=== PATIENT | male | born 1995 | race Caucasian/White ===

== ENCOUNTER 2016-08-02 10:39 | Outpatient (CLI) ==
[2014-05-24 18:24] VITALS: BMI 29.3
[2016-08-02 10:52] LABS: BASOPHILS % (AUTO) 0.7 % (0.0-3.0); EOSINOPHILS # (AUTO) 0.1 K/ul (0.0-0.7); EOSINOPHILS % (AUTO) 2.1 % (0.0-7.0); HEMATOCRIT 38.9 % (42.0-52.0); HEMOGLOBIN 12.5 g/dl (14.0-18.0); IMMATURE GRANULOCYTE % (AUTO) 1.1 % (0.0-5.0); LYMPHOCYTES # (AUTO) 2.8 K/uL (0.60-3.4); LYMPHOCYTES % (AUTO) 45.2 (10.0-50.0); MEAN CORPUSCULAR HEMOGLOBIN 24.3 pg (27.0-31.0); MEAN CORPUSCULAR HGB CONC 32.1 (31.8-35.4); MEAN CORPUSCULAR VOLUME 75.7 fl (80.0-94.0); MONOCYTES # (AUTO) 0.5 K/uL (0.4-2.0); MONOCYTES % (AUTO) 7.8 (0-10); NEUTROPHILS # (AUTO) 2.7 K/ul (2.0-6.9); NEUTROPHILS % (AUTO) 43.1; PLATELET COUNT 232 10^3/uL (140-440); RED BLOOD COUNT 5.14 10^6/ul (4.70-6.10); WHITE BLOOD COUNT 6.15 K/ul (4.2-10.2)
[2016-08-02 11:26] LABS: ALBUMIN/GLOBULIN RATIO 1.14; ANION GAP 12.8; BILIRUBIN,TOTAL 0.56 mg/dL (0.00-1.20); BUN/CREATININE RATIO 8.13; CALCIUM 9.4 mg/dL (8.2-10.2); CHOL/HDL RATIO 5.3 (4.5-6.4); CREATININE 1.23 mg/dL (0.60-1.10); POTASSIUM 3.8 mmol/L (3.5-5.1); TOTAL PROTEIN 7.5 g/dL (6.4-8.2)
== END 2016-08-02 10:40 | disposition home or self-care (01) ==
LOC: RAD 10:39 → LAB 10:40
PROVIDERS: ATTEND Nurse Practitioner Family
DX: R73.9 Hyperglycemia, unspecified (principal); I10 Essential (primary) hypertension; R94.5 Abnormal results of liver function studies; M54.5 Low back pain
CPT/HCPCS: 36415; 80053; 80061; 83036; 85025

== ENCOUNTER 2016-10-12 07:07 | Outpatient (CLI) ==
[2016-10-12 08:14] VITALS: BMI 31.4
== END 2016-10-12 07:08 | disposition home or self-care (01) ==
LOC: DIETCN 07:07
PROVIDERS: ATTEND Nurse Practitioner Family
DX: E11.9 Type 2 diabetes mellitus without complications (principal); K76.0 Fatty (change of) liver, not elsewhere classified
CPT/HCPCS: 97802

== ENCOUNTER 2016-11-09 10:31 | Outpatient (CLI) ==
[2016-11-09 11:07] LABS: BASOPHILS % (AUTO) 0.6 % (0.0-3.0); EOSINOPHILS # (AUTO) 0.1 K/ul (0.0-0.7); EOSINOPHILS % (AUTO) 1.5 % (0.0-7.0); HEMATOCRIT 40.5 % (42.0-52.0); HEMOGLOBIN 13.2 g/dl (14.0-18.0); IMMATURE GRANULOCYTE % (AUTO) 0.9 % (0.0-5.0); LYMPHOCYTES # (AUTO) 2.4 K/uL (0.60-3.4); MEAN CORPUSCULAR HGB CONC 32.6 (31.8-35.4); MEAN CORPUSCULAR VOLUME 76.7 fl (80.0-94.0); MONOCYTES # (AUTO) 0.4 K/uL (0.4-2.0); MONOCYTES % (AUTO) 7.2 (0-10); NEUTROPHILS # (AUTO) 2.3 K/ul (2.0-6.9); NEUTROPHILS % (AUTO) 43.8; PLATELET COUNT 238 10^3/uL (140-440); RED BLOOD COUNT 5.28 10^6/ul (4.70-6.10); WHITE BLOOD COUNT 5.28 K/ul (4.2-10.2)
[2016-11-09 11:17] LABS: ALBUMIN/GLOBULIN RATIO 1.08; ANION GAP 15.5; BILIRUBIN,TOTAL 0.42 mg/dL (0.00-1.20); BUN/CREATININE RATIO 10.4; CALCIUM 9.7 mg/dL (8.2-10.2); CREATININE 1.25 mg/dL (0.60-1.10); POTASSIUM 4.5 mmol/L (3.5-5.1); TOTAL PROTEIN 7.7 g/dL (6.4-8.2)
[2016-11-09 11:25] LABS: BILIRUBIN,URINE Negative (NEGATIVE); KETONES,URINE Negative (NEGATIVE); LEUKOCYTE ESTERASE ,URINE Negative (NEGATIVE); NITRITE,URINE Negative (NEGATIVE); PROTEIN,URINE Negative (NEGATIVE); URINE, BLOOD Negative (NEGATIVE)
[2016-11-09 11:30] LABS: ADD URINE MICROSCOPIC NO
--- NOTE | 2016-11-09 12:20 | DI ---
EXAM: KUB. History: Abdominal pain. Comparison: CT abdomen pelvis 05/24/2014 Findings: Nonspecific but nonobstructive bowel gas pattern. No free intraperitoneal air. No suspic ious calcifications are seen projecting over the renal shadows. No acute osseous abnormalities. Mil d to moderate scattered colonic stool. Impression: No acute radiographic findings within the abdomen.
== END 2016-11-09 10:32 | disposition home or self-care (01) ==
LOC: RAD 10:31
PROVIDERS: ATTEND Nurse Practitioner Family
DX: R10.817 Generalized abdominal tenderness (principal); R10.9 Unspecified abdominal pain; E11.9 Type 2 diabetes mellitus without complications
CPT/HCPCS: 36415; 80053; 81001; 83036; 85025

== ENCOUNTER 2017-02-26 11:45 | Outpatient (CLI) ==
--- NOTE | 2017-02-26 14:26 | MRI ---
EXAM: Brain MRI with and without contrast. HISTORY: Chronic headache. COMPARISON: Head CT 01/27/[address] 05/03/2007. TECHNIQUE: Multiplanar, multisequence MR images were acquired of the brain with and without contrast . FINDINGS: The midline structures are central and the craniocervical junction is unremarkable. The v entricles are normal in size. There is mild prominence of the subarachnoid space around both cerebel lar hemisphere and mild prominence of some sulci. The ventricles are normal in size. These findings are compatible with normal variation. There are no abnormal extra-axial fluid collections. The brain parenchyma has no restricted diffusion to suggest acute hypoperfusion or infarction. There are no abnormal T2 hyperintensities or foci of dark gradient echo signal to suggest intracranial hem orrhage. The corpus callosum has a normal configuration. The pituitary gland is normal in size with a mildly convex superior border that is considered normal for the patient's age. The gland measures 7.3 mm in height which is normal. After administration of contrast, no enhancing masses are identif ied. There are no intraorbital masses. Minor focal mucosal thickening is present in the left maxillary si nus. The frontal sinus is hypoplastic. There is focal mucosal thickening in the right sphenoid sinu s. Middle ears and mastoids are clear. There is mild adenoidal hypertrophy with a few nasopharyngea l submucosal cysts. There is no abnormal contrast enhancement in the internal auditory canals or lab yrinthine structures. Flow voids are present in the major intracranial arteries and dural venous sinuses. IMPRESSION: No intracranial mass, hemorrhage or acute cerebral infarct. Negative brain MRI.
== END 2017-02-26 11:46 | disposition home or self-care (01) ==
LOC: RAD 11:45
PROVIDERS: ATTEND Family Medicine
DX: R51 Headache (principal); G89.29 Other chronic pain; K76.0 Fatty (change of) liver, not elsewhere classified; E66.9 Obesity, unspecified; R79.89 Other specified abnormal findings of blood chemistry; R10.11 Right upper quadrant pain; K58.9 Irritable bowel syndrome, unspecified
CPT/HCPCS: 36415; 80053; 80061; 84436; 84443; 85025

== ENCOUNTER 2017-03-14 10:22 | Outpatient (CLI) ==
--- NOTE | 2017-03-15 18:33 | MRI ---
EXAM: Thoracic spine MRI with and without contrast. HISTORY: Back pain. COMPARISON: Chest radiograph 02/15/2007. TECHNIQUE: Multiplanar, multisequence MR images were acquired of the thoracic spine without contrast . FINDINGS: 12 rib-bearing thoracic vertebra are present. Conus medullaris ends at T12-L1. The thora cic vertebra are normal in height and intrinsic bone marrow signal. There is minor cervicothoracic l evoscoliosis centered at T2-3 and there is minor chronic left lateral wedging of T2 and T3 and right lateral wedging of T4 that is considered developmental. No acute compression fractures are present. There is endplate irregularity in the thoracic spine and there are small chronic Schmorl's nodes at T5 and from T7 to L2. Canal diameter is developmentally normal. However, there is dorsal epidural l ipomatosis from T3 through T9. In this patient with a developmentally narrow canal, this produces mil d central canal stenosis from T3-4 through T8-9 and minor stenosis at T9-10. The thoracic cord is wi thout syrinx. Evaluation for abnormal signal intensity is limited by decreased [id number]. The partially visualized liver, spleen, adrenal glands and kidneys are unremarkable. T1-2, T2-3: The intervertebral discs are normal. T3-4, T4-5: There is dorsal epidural lipomatosis and in this patient with short pedicles, there is m ild spinal stenosis and mild bilateral foraminal stenosis. T5-6, T6-7, T7-8: The intervertebral discs are normal. There is dorsal epidural lipomatosis which p roduces mild central canal stenosis. At T7-8, there is mild left facet hypertrophy. There is mild to moderate right and mild left foraminal stenosis. T8-9: The intervertebral disc is normal. There is mild to moderate left and mild right neural juice inal stenosis and mild central canal stenosis. T9-10: The intervertebral disc is normal. Bilateral facet hypertrophy is present and there is mild to moderate left and mild right foraminal stenosis. There is minor central canal stenosis. T10-11: There is a minor disc bulge without central canal stenosis. There is mild to moderate bilat eral foraminal stenosis. T11-12, T12-L1: The intervertebral discs are normal. There is no central canal stenosis or foramina l stenosis. IMPRESSION: 1. Mild thoracic degenerative spondylosis with chronic Schmorl's nodes at T5 and from T7 to L2. 2. Dorsal epidural lipomatosis is present which produces mild central canal stenosis from T3-4 throu gh T8-9.
== END 2017-03-14 10:23 | disposition home or self-care (01) ==
LOC: RAD 10:22
PROVIDERS: ATTEND Family Medicine
DX: M54.6 Pain in thoracic spine (principal); G89.29 Other chronic pain

== ENCOUNTER 2017-12-13 11:30 | Emergency (ER) ==
[2017-12-13 11:30] VITALS: BMI 31.4
[2017-12-13 11:32] VITALS: TEMP 98
--- NOTE | 2017-12-13 11:51 | ED.PDOC ---
General ED Provider: Dr. LOUIS COHEN Chief Complaint: Fall Stated Complaint: Rt Knee Pain. States he was walking at [facility] this past weekend when he encountered a soft area on the ground which caused him to strain his rt knee. Pain along outer aspect rt knee extending into lateral thigh. Denies hip or ankle. Time Seen by Physician: 11:35 Mode of Arrival: Walk-In Information Source: Patient Exam Limitations: No limitations Primary Care Provider: STEPHANIE CONLEY Nursing and Triage Documentation Reviewed and Agree: Yes Does patient meet sepsis criteria?: No System Inflammatory Response Syndrome: Not Applicable Sepsis Protocol: For patient's 13 years and over: Temp is 96.8 and below OR 101 and greater Pulse >90 BPM Resp >20/minute Acutely Altered Mental Status Are patient's symptoms suggestive of a new infection, such as: -Pneumonia -Skin, Soft Tissue -Endocarditis -UTI -Bone, Joint Infection -Implantable Device -Acute Abdominal Infection -Wound Infection -Meningitis -Blood Stream Catheter Infection -Unknown Review of Systems - Review Of Systems Constitutional: Reports: No symptoms Eyes: Reports: No symptoms Ears, Nose, Mouth, Throat: Reports: No symptoms Respiratory: Reports: No symptoms Cardiac: Reports: No symptoms GI: Reports: No symptoms : Reports: No symptoms Musculoskeletal: Reports: No symptoms, Joint pain, Muscle pain Skin: Reports: No symptoms Neurological: Reports: No symptoms Endocrine: Reports: No symptoms Hematologic/Lymphatic: Reports: No symptoms All Other Systems: Reviewed and Negative Past Medical History - Past Medical History Previously Healthy: Yes Endocrine: Reports: None, DM 2 (States his diabetes is not a confirmed diagnosis ), Dyslipidemia, Other (Fatty Liver Disease) Cardiovascular: Reports: None, Hypertension Respiratory: Reports: None Hematological: Reports: None Gastrointestinal: Reports: None Genitourinary: Reports: None Neuro/Psych: Reports: None Musculoskeletal: Reports: Joint Pain Cancer: Reports: None - Surgical History General Surgical History: Reports: None - Family History Family History: Reports: None - Social History Smoking Status: Never smoker Hx Substance Use: No Alcohol Screening: None - Immunizations Tetanus Shot up to Date: No Physical Exam - Physical Exam Appearance: Well-appearing, No pain distress, Well-nourished Eyes: GARRY, EOMI, Conjunctiva clear ENT: Ears normal, Nose normal, Oropharynx normal Respiratory: Airway patent, Breath sounds clear, Breath sounds equal, Respirations nonlabored Cardiovascular: RRR, Pulses normal, No rub, No murmur GI/: Soft, Nontender, No masses, Bowel sounds normal, No Organomegaly Musculoskeletal: Normal strength (all watson of motion rt knee intact. minimal tenderness to testing of Lat Collateral Lig but no laxity; neg ant/post drawer sign), ROM intact, No edema, No calf tenderness Skin: Warm, Dry, Normal color Neurological: Sensation intact, Motor intact, Reflexes intact, Cranial nerves intact, Alert, Oriented Psychiatric: Affect appropriate, Mood appropriate Critical Care Note - Critical Care Note Total Time (mins): 0 Course - Course Orders, Labs, Meds: Orders Category Date Time Status WILMA [ED WILMA WRAP] .ONCE EMERGENCY 12/13/17 12:31 Active KNEE, RIGHT 4 VIEWS Stat RADS 12/13/17 11:51 Completed Vital Signs: Temp Pulse Resp BP Pulse Ox 12/13/17 12:52 192/117 H 12/13/17 11:30 98.0 F 109 H 20 203/130 H 98 Departure - Departure Time of Disposition: 12:30 Disposition: HOME SELF-CARE Discharge Problem: Strain of right knee, Labile hypertension Instructions: Chronic Hypertension (ED), Knee Pain (ED) Condition: Good Pt referred to PMD for follow-up: Yes (Dr Conley in 1 week) IPMP verified?: No Additional Instructions: Wear wilma wrap for support Ice, Elevate , analgesics for pain control See Dr Conley in 1 wk Is discomfort persists additional evaluation may be warranted. Monitor BP daily at home See Dr Conley in the office next week Prescriptions: Ibuprofen 600 mg PO QID #20 tablet Allergies/Adverse Reactions: Allergies pertussis vaccine,adsorbed [Pertussis Vaccine,Adsorbed] Adverse Reaction ( Unverified 12/13/17 11:32) Home Medications: Ambulatory Orders Cyclobenzaprine HCl 10 mg PO DAILY PRN 02/25/14 Docusate Sodium [Roy' Laxative] 100 mg PO DAILY PRN 05/26/14 Dicyclomine HCl [Bentyl] 10 mg PO DAILY 10/06/16 Ibuprofen 600 mg PO QID #20 tablet 12/13/17 Disposition Discussed With: Patient Additional Comments Additional Comments: Discusse BP issues. State has had life long issues with uncontrolled hypertension which is labile with pain or anxiety. Cautioned pt to monitor at home. Curently denies visual changesl, headache, dizziness or chest pain. Spoke with DR Conley and made him aware of patients ER visit, situation with his BP. Advised would not treat current BP since coming down, have pt follow up with his offic for evaluation and tx. Patient feels his issue is due to the stress of his knee injury and coming to the ER. Monitor BP daily at home
--- NOTE | 2017-12-13 12:17 | DI ---
EXAM: Radiographs, right knee HISTORY: Initial presentation for right knee trauma. COMPARISON: None available. TECHNIQUE: Four views. FINDINGS: Bone mineralization is normal. There is no fracture or dislocation. The joint spaces are maintained. No focal soft tissue abnormality is seen. IMPRESSION: No fracture or dislocation.
[2017-12-13 12:52] VITALS: BP 192/117
== END 2017-12-13 13:20 | disposition home or self-care (01) ==
LOC: ED 11:30
DX: S86.811A Strain of other muscle(s) and tendon(s) at lower leg level, right leg, initial encounter (principal); I10 Essential (primary) hypertension; W19.XXXA Unspecified fall, initial encounter
CPT/HCPCS: 99284